=== PATIENT | female | born 1995 | race Caucasian/White ===

== ENCOUNTER 2019-04-01 11:01 | Emergency (ER) | payer OTHER ==
[~2019-04-01] VITALS: Ht 172.7 cm; Wt 83.9 kg
[2019-04-01 11:24] VITALS: BP 110/77
[2019-04-01] MEDS ORDERED: TETANUS, DIPHTHERIA, PERTUSSIS VAC/PF 0.5ML (>7YR OLD) IM ONE (12:00)
[2019-04-01] MEDS ORDERED: BACITRACIN ZINC OINT UDPKT TOP ONE (12:00)
[2019-04-01] MEDS ORDERED: LIDOCAINE HCL/PF 1% 10 MG/ML 5ML VIAL IJ ONE (12:00)
[2019-04-01] MEDS ORDERED: IBUPROFEN 600MG TABLET PO ONE (12:00)
[2019-04-01] MEDS ORDERED: BACITRACIN 15GM TUBE TOP NR (13:30)
== END 2019-04-01 13:58 | disposition home or self-care (01) ==
LOC: ER 11:01
DX: S51.821A Laceration with foreign body of right forearm, initial encounter (principal); W25.XXXA Contact with sharp glass, initial encounter; Y93.89 Activity, other specified; Y92.89 Other specified places as the place of occurrence of the external cause; Z23 Encounter for immunization
CPT/HCPCS: 12001; 73090; 73110; 90471; 90715; 99283; J3490

== ENCOUNTER 2019-04-04 09:22 | Emergency (ER) | payer OTHER ==
[~2019-04-04] VITALS: Ht 162.6 cm; Wt 82.0 kg
[2019-04-04 12:44] VITALS: BP 110/61
== END 2019-04-04 12:49 | disposition home or self-care (01) ==
LOC: ER 09:22
DX: S61.411D Laceration without foreign body of right hand, subsequent encounter (principal); X58.XXXD Exposure to other specified factors, subsequent encounter
CPT/HCPCS: 99283

== ENCOUNTER 2019-04-12 09:56 | Emergency (ER) | payer OTHER ==
[~2019-04-12] VITALS: Ht 167.6 cm; Wt 85.0 kg
[2019-04-12] MEDS ORDERED: BACITRACIN ZINC OINT UDPKT TOP ONE (11:15)
[2019-04-12] MEDS ORDERED: BACITRACIN 15GM TUBE TOP NR (11:15)
[2019-04-12 11:21] VITALS: BP 119/69
== END 2019-04-12 11:21 | disposition home or self-care (01) ==
LOC: ER 09:56
DX: Z48.02 Encounter for removal of sutures (principal); L03.113 Cellulitis of right upper limb
CPT/HCPCS: 99283